=== PATIENT | male | born 1980 | race Hispanic/Latino ===

== ENCOUNTER 2020-09-09 12:07 | Emergency (ER) | payer SELFPAY ==
[2020-09-09 12:17] VITALS: BP 160/82; PULSE 84; RESP 16; TEMP 37.2; O2SAT 100
--- NOTE | 2020-09-09 12:52 | ED.ABDPAIN ---
HPI - Abdominal Pain General Chief Complaint: Abdominal Pain Stated Complaint: Top abdominal pain after meals Time Seen by Provider: 09/09/20 12:40 Source: patient, RN notes reviewed and old records reviewed Mode of arrival: ambulatory Limitations: language barrier and other (niece here to translate) History of Present Illness HPI narrative: 39 year old male accompanied by niece presents to express care, patient speaks little [place] niece to translate for patient. Reports that he has been experiencing upper epigastric pain since Sunday 5 days with increase in pain last night whenever he eats. He reports that he has been experiencing belching, bloating, heartburn, and upper epigastric pain and it is worse when he lies down. Patient states that he he has taken Advil for his discomfort with no improvement. Patient denies any tobacco use, no alcohol consumption, admits to spicy foods in his diet, denies any increase use in caffeine consumption. Patient denies any episodes of nausea,vomiting or diarrhea. Patient denies any known sick contacts or others with same symptoms. MD elicited complaint: abdominal pain Pertinent past history: none Onset (ago): day(s) (5) Pain Consistency: intermittent (increases when he eats) Location: epigastric Severity: moderate Pain scale (0-10): 7 Quality: aching Radiation: epigastric Migration to: no migration Exacerbating factors: eating and other (lying down) Relieving factors: nothing Associated symptoms: denies other symptoms Treatments prior to arrival: NSAIDs Related Data Allergies Allergy/AdvReac Type Severity Reaction Status Date / Time No Known Allergies Allergy Verified 09/09/20 12:26 Review of Systems Review of Systems: Narrative: CONSTITUTIONAL: Denies fever, chills, or sweats. EYES: Denies visual changes, redness, or discharge. ENT: Denies rhinorrhea, congestion, sore throat, or otalgia. CARDIOVASCULAR: Denies chest pain, palpitations, or edema. RESPIRATORY: Denies cough or dyspnea. GASTROINTESTINAL: Positive for upper epigastric abdominal pain, no nausea, vomiting, or diarrhea. GENITOURINARY: Denies dysuria or hematuria. SKIN: Denies rash or itching. MUSCULOSKELETAL: Denies back pain, joint pain, or myalgia. NEUROLOGIC: Denies headache, numbness, or weakness. PSYCHIATRIC: Denies anxiety or depression. All systems reviewed & are unremarkable except as noted in HPI and below PMFSH Past Medical History Medical History (Updated 09/11/20 @ 09:55 by Lavonne Cook NP) No pertinent past medical history Surgical History Surgical History (Updated 09/09/20 @ 13:08 by Lavonne Cook NP) No history of previous surgery Family History Family History (Updated 09/11/20 @ 09:54 by Lavonne Cook NP) Other Cerebrovascular accident Heart disease Social History Social History (Updated 09/09/20 @ 20:21 by Lavonne Cook NP) Smoking status: Never smoker Alcohol intake: never Substance use: never Living arrangements: with family Gender identity (if verbalized by the patient): Male Comments At time of signature, agree with nursing past medical, surgical, social and family history. There is no relevant family history pertinent to the presenting complaint Exam Narrative: Exam Narrative: GENERAL: Well-appearing, well-nourished, and in no acute distress. HEAD: Normocephalic, atraumatic. EYES: PERRLA and EOMI. ENT: Nares clear, no rhinorrhea or epistaxis. Mucous membranes moist.TM's normal with good light reflex, throat pink with no lesions or exudates no tonsil swelling NECK: Supple.no lymphadenopathy CHEST: Clear to auscultation. No respiratory distress.SAO2 100% on room air HEART: Regular rate and rhythm. No murmur heard. Normal peripheral pulses. ABDOMEN: Soft, tender upper epigastric, nondistended,no organomegaly on palpation. normal active bowel sounds. EXTREMITIES: Normal range of motion. No edema. SKIN: Warm, dry, no rash. NEURO: No focal deficits. Alert an
== END 2020-09-09 13:24 | disposition home or self-care (01) ==
PROVIDERS: Emergency Provider Registered Nurse
DX: K21.9 Gastro-esophageal reflux disease without esophagitis (principal)
CPT/HCPCS: 99213; G0463

== ENCOUNTER 2023-01-04 17:55 | Emergency (ER) | payer SELFPAY ==
[2023-01-04 18:06] VITALS: BP 134/87; PULSE 77; RESP 20; TEMP 37.1; O2SAT 99
--- NOTE | 2023-01-04 18:12 | ED.MALEGU ---
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 He reports his significant other has tested positive for chlamydia and was treated today. Related Data Allergies Allergy/AdvReac Type Severity Reaction Status Date / Time No Known Allergies Allergy Verified 01/04/23 18:09 Review of Systems Review of Systems: Pertinent positives per HPI. Patient denies any fever, chills, rash, headache, visual changes, dizziness, cough, runny nose, sore throat, shortness of breath, chest pain, palpitations, nausea, vomiting, diarrhea, constipation, abdominal pain. PMFSH Past Medical History Medical History (Updated 01/04/23 @ 18:25 by Irvin Petersen APRN) No pertinent past medical history Surgical History Surgical History No history of previous surgery Family History Family History Other Cerebrovascular accident Heart disease Social History Social History (Updated 09/09/20 @ 20:21 by Lavonne Cook NP) Smoking status: Never smoker Alcohol intake: never Substance use: never Living arrangements: with family Gender identity (if verbalized by the patient): Male Comments At the time of my signature, I reviewed and agree with the nursing past medical, surgical, social, and family history. There is no relevant family history pertinent to the patient complaint. Exam Narrative: General: Well-developed, well nourished, in no apparent distress. Head: Normocephalic, atraumatic. Cardio: Regular rate and rhythm, s1 and s2 normal, no murmur appreciated. Resp: Clear to auscultation bilaterally, no rhonchi, rales, wheezing or rubs. Abdomen: Soft, pliable, bowel sounds present in all quadrants, non-tender to palpation, no organomegly, no CVAT tenderness. : Deferred- positive exposure to chlamydia-will test for gc/chl and trich Course Course Emergency Course: Portions of this record may have been created with voice recognition software. Level of Care: Express Care Visit Vital Signs Vital signs: Vital signs reviewed MDM - Male Genitourinary MDM Narrative Medical decision making narrative: At the time of visit patient is resting comfortably on the exam table. Patient's significant other tested positive for chlamydia today and started on doxycycline. Rocephin 500 mg IM given in the clinic today. Prescription for doxycycline was sent to the pharmacy. Supportive measures were discussed with the patient and he voiced understanding discharge instructions and agrees to treatment plan. UA shows 1+ blood, leukocyte, and protein. We will send for culture. Differential Diagnosis Differential diagnosis: Likely urinary tract infection, urethritis, epididymitis and other (STI, penile discharge) Discharge Plan Discharge Clinical Impression: Discharge from penis, Exposure to chlamydia Patient Disposition: Home, Self-Care Condition: Stable Instructions: Antibiotic Form, Chlamydia (ED), Sexually Transmitted Diseases (ED), Safe Sex Practices (ED) Additional Instructions: Rocephin 500 mg IM administrado hoy en la cl?angelita: esto tratar? la gonorrea [place] doxiciclina 100 mg dos veces al d?a anya 7 d?as; tome carlos alberto medicamento hasta que se acabe por completo; esto tratar? la clamidia. Le hemos examinado/tratado para detectar ITS en la cl?angelita hoy. Evite cualquier actividad sexual, incluidas las relaciones sexuales orales, anales o vaginales, hasta que obtenga resultados y haya completado los reg?menes de tratamiento adicionales recomendados. Nos c
[2023-01-04] MEDS: cefTRIAXone 500 MG, LIDOCAINE HCL 1% LOCAL INJ 1 ML IM (18:37)
[2023-01-05 19:48] LABS: Trichomonas Vag PCR NOT DETECTED (NOT DETECTE)
[2023-01-05 20:12] LABS: Chlamydia trachomatis DETECTED (NOT DETECTE); Neisseria gonorrhoeae PCR NOT DETECTED (NOT DETECTE)
== END 2023-01-04 18:42 | disposition home or self-care (01) ==
PROVIDERS: Emergency Provider Nurse Practitioner Family
DX: R36.9 Urethral discharge, unspecified (principal); Z20.2 Contact with and (suspected) exposure to infections with a predominantly sexual mode of transmission
CPT/HCPCS: 81003; 87086; 87491; 87591; 87661; 96372; 99213; G0463; J0696